=== PATIENT | male | born 1985 | race Caucasian/White ===

== ENCOUNTER 2021-04-18 14:48 | Emergency (ER) | payer BC, OTHER ==
[2021-04-18 14:53] VITALS: BP 156/92
[2021-04-18] MEDS ORDERED: TORADOL IM STA (15:29)
--- NOTE | 2021-04-18 15:30 | ER.PDOC ---
General Chief Complaint: Headache Stated Complaint: FEVER,COUGH,HEAD/BODYACHE TRAVEL OUT OF US: No Time seen by MD: 15:30 Source: patient Exam Limitations: no limitations History of Present Illness Initial Comments Tested positive for covid and complaints of headaches denies fever or chills. Timing/Duration: 24 hours Severity: mild Modifying Factors: worse with cold therapy, worse with eating, worse with immobilization, worse with medication, worse with movement, worse with rest, worse with other Associated Symptoms: headaches Allergies: Coded Allergies: shellfish derived (Verified Allergy, Unknown, unk, 04/18/21) Past Medical History Medical History: diabetes Surgical History: no surgical history Social History Alcohol Use: none Drug Use: none Review of Systems All Other Systems: Reviewed and Negative Physical Exam General Appearance: No Apparent Distress, WD/WN EENT: eyes nml inspection, nml ENT inspection Neck: Non-Tender, Full Range of Motion, Supple Respiratory: chest non-tender, lungs clear, normal breath sounds, no respiratory distress CVS: reg rate & rhythm, no murmur, no gallop, pulses nml Gastrointestinal: Normal Bowel Sounds, No Organomegaly, No Pulsatile Mass Back: Normal Inspection, No CVA Tenderness Extremities: Normal Range of Motion 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 NML as Tested Skin: Normal Color Lymphatic: No Adenopathy Results/Orders Results/Orders Vital Signs Date Time Temp Pulse Resp B/P (MAP) Pulse Ox O2 Delivery O2 Flow Rate FiO2 04/18/21 14:53 97.8 102 16 04/18/21 14:53 97.8 102 20 99 04/18/21 14:53 97.8 102 16 156/92 (113) 99 Room Air ER DEPART Departure Time of Disposition: 15:45 Disposition: 01 HOME / SELF CARE / HOMELESS Impression: Primary Impression: Headache Additional Impression: COVID-19 virus infection Condition: Improved Referrals: PCP,UNKNOWN (PCP) PRIMARY CARE PROVIDER Duration or Time Spent with Pa: 10 Problem Qualifiers Primary Impression: Headache Headache type: unspecified Headache chronicity pattern: acute headache Intractability: not intractable Qualified Codes: R51.9 - Headache, unspecified KETTY GRACE MD Apr 18, 2021 15:30
[2021-04-18] MEDS ORDERED: TORADOL ONE (15:31)
== END 2021-04-18 15:48 | disposition home or self-care (01) ==
LOC: ER 14:48
DX: U07.1 COVID-19 (principal); R51.9 Headache, unspecified; E11.9 Type 2 diabetes mellitus without complications; Z91.013 Allergy to seafood
CPT/HCPCS: 96372; 99284; J1885